=== PATIENT | male | born 1995 | race Caucasian/White ===

== ENCOUNTER 2018-11-30 23:22 | Emergency (ER) | payer SELFPAY ==
[~2018-11-30] VITALS: Ht 175.3 cm; Wt 142.9 kg
[2018-11-30 23:27] VITALS: Ht 175.3 cm; Wt 142.9 kg
[2018-12-01 00:43] VITALS: BP 118/82
== END 2018-12-01 00:43 | disposition home or self-care (01) ==
LOC: ED 23:22
DX: M54.42 Lumbago with sciatica, left side (principal); J45.909 Unspecified asthma, uncomplicated; Z88.8 Allergy status to other drugs, medicaments and biological substances; Z91.013 Allergy to seafood
CPT/HCPCS: J1885